=== PATIENT | male | born 1955 ===

== ENCOUNTER 2017-03-19 17:07 | Emergency (ER) | payer MEDICAID, OTHER ==
[2017-03-19 17:16] VITALS: BP 156/99; PULSE 72; RESP 18; TEMP 97.8; O2SAT 98
[2017-03-19] MEDS ORDERED: Tobramycin 0.3% OPH OINT ONE (17:54)
[2017-03-19] MEDS ORDERED: Tobramycin/Dexamethasone OPHT OINT OS ONE (17:55)
--- NOTE | 2017-03-19 18:38 | C.PDOC ---
History Of Present Illness 62 year old male was brought to the ED with complaints of left eye redness for three days. Patient reports he has has similar symptoms in the past. He denies visual changes, foreign body sensation, or trauma. Chief Complaint (Nursing): Eye Problem History Per: Patient History/Exam Limitations: no limitations Onset/Duration Of Symptoms: Days (3 days ) Current Symptoms Are (Timing): Still Present Injury To Eye?: No Associated Symptoms: Other (redness ). denies: Decreased Vision, FB Sensation, Discharge From Eye Recent travel outside of the [place]: No Past Medical History Reviewed: Historical Data, Nursing Documentation, Vital Signs Vital Signs: Last Vital Signs Temp 97.8 F 03/19/17 17:14 Pulse 72 03/19/17 17:14 Resp 18 03/19/17 17:14 BP 156/99 H 03/19/17 17:14 Pulse Ox 98 03/19/17 18:38 - Medical History PMH: Depression (not on meds), HTN Family History: States: Unknown Family Hx - Social History Hx Tobacco Use: Yes Hx Alcohol Use: No Hx Substance Use: Yes (cocaine) - Immunization History Hx Tetanus Toxoid Vaccination: No Hx Influenza Vaccination: No Hx Pneumococcal Vaccination: No Review Of Systems Constitutional: Negative for: Fever Eyes: Positive for: Redness (left eye redness ). Negative for: Vision Change Physical Exam - Physical Exam Appears: Non-toxic, No Acute Distress Skin: Warm, Dry Head: Atraumatic, Normacephalic, No Tenderness, No Swelling, No Abrasion, No Laceration Eye(s): right: Normal Inspection, left: PERRL, EOMI, Other (subconjunctival hemorrhage ) Ear(s): Bilateral: Normal Nose: Normal, No Discharge Oral Mucosa: Moist Neurological/Psych: Oriented x3 ED Course And Treatment O2 Sat by Pulse Oximetry: 98 (RA) Progress Note: Patient had TobraDex ointment applied. Disposition - Disposition Referrals: Pedro Preston MD [Staff Provider] - Disposition: HOME/ ROUTINE Disposition Time: 17:45 Condition: GOOD Additional Instructions: Thank you for letting us take care of you today. Your provider was Dr. Garg. You were treated for subconjuntival hemorrhage. The emergency medical care you received today was directed at your acute symptoms. If you were prescribed any medication, please fill it and take as directed. It may take several days for your symptoms to resolve. Return to the Emergency Department if your symptoms worsen, do not improve, or if you have any other problems. Please contact your doctor or call one of the physicians/clinics you have been referred to that are listed on the Patient Visit Information form that is included in your discharge packet. Bring any paperwork you were given at discharge with you along with any medications you are taking to your follow up visit. Our treatment cannot replace ongoing medical care by a primary care provider (PCP) outside of the emergency department. Thank you for allowing the [facility] team to be part of your care today. Follow up with the eye doctor tomorrow in 3-4 days for further evaluation and management. Josh por permitirnos cuidar de alexandra dunbar. Thompson proveedor fue el Dr. Garg. Te trataron por hemorragia subconjuntival. La atencin mdica de emergencia que recibi hoy estaba dirigida a anton sntomas agudos. Si le recetaron algn medicamento, llnelo y tome kory se le indic. Puede llevar varios gonzales resolver anton sntomas. Regrese al Departamento de Emergencias si anton sntomas empeoran, no mejoran o si tiene algn otro problema. Comunquese con thompson mdico o llame a ashley de los mdicos / clnicas a los que fraser sido derivado que figuran en el formulario de informacin de visita del paciente que se incluye en thompson paquete de valarie. Lleve consigo cualquier papeleo que reciba al valarie junto con cualquier medicamento que est tomando en thompson visita de seguimiento. Nuestro tratamiento no puede reemplazar la atencin m dica continua de un proveedor de atencin primaria (PCP) fuera del departamento de emergencias. Josh por permitir que el equipo de [facility] sea parte de thompson atencin hoy. Contina con el oftalmlogo maana en 3-4 gonzales para evan evaluacin y manejo adicionales. Prescriptions: Polymyxin/Trimethoprim Sulfate [Polytrim Ophth Soln] 1 drop OS Q6 #1 bottle Instructions: Subconjunctival Hemorrhage (ED) Forms: Gen Discharge Inst Cook Islander Print Language: CZECH - Clinical Impression Clinical Impression: Subconjunctival hemorrhage - Scribe Statement The provider has reviewed the documentation as recorded by the Scribe Jaimie Severino All medical record entries made by the Scribe were at my direction and personally dictated by me. I have reviewed the chart and agree that the record accurately reflects my personal performance of the history, physical exam, medical decision making, and the department course for this patient. I have also personally directed, reviewed, and agree with the discharge instructions and disposition.
== END 2017-03-19 18:00 | disposition home or self-care (01) ==
LOC: C.ER 17:07
DX: H11.32 Conjunctival hemorrhage, left eye (principal); Z87.891 Personal history of nicotine dependence

== ENCOUNTER 2018-01-11 01:15 | Inpatient (IN) | payer MEDICAID, OTHER ==
[2018-01-11] MEDS ORDERED: Sodium Chloride 0.9% 1,000 ML IV ONE (01:50)
[2018-01-11] MEDS ORDERED: Sucralfate 1 gm/10 ml Oral Susp UD PO STA (01:52)
--- NOTE | 2018-01-11 01:52 | C.PDOC ---
History Of Present Illness 62 year old male presents to the ED c/o chest pain after using cocaine today. Patient is also c/o feeling spams. Patient denies SI/HI, hallucinations, SOB, weakness, numbness, headache, dizziness. Chief Complaint (Nursing): Chest Pain History Per: Patient History/Exam Limitations: no limitations Onset/Duration Of Symptoms: Hrs Current Symptoms Are (Timing): Still Present Context: Other Quality: "Pain" Alleviating Factors: None Recent travel outside of the [place]: No Additional History Per: Patient Past Medical History Reviewed: Historical Data, Nursing Documentation, Vital Signs Vital Signs: Last Vital Signs Temp 98 F 01/11/18 01:23 Pulse 68 01/11/18 04:22 Resp 18 01/11/18 04:22 BP 109/71 01/11/18 04:22 Pulse Ox 97 01/11/18 05:10 - Medical History PMH: Depression (not on meds), HTN Surgical History: No Surg Hx Family History: States: Unknown Family Hx - Social History Hx Tobacco Use: Yes Hx Alcohol Use: No Hx Substance Use: Yes (cocaine) - Immunization History Hx Tetanus Toxoid Vaccination: No Hx Influenza Vaccination: No Hx Pneumococcal Vaccination: No Review Of Systems Constitutional: Negative for: Fever, Chills Eyes: Negative for: Vision Change Cardiovascular: Positive for: Chest Pain. Negative for: Palpitations Respiratory: Negative for: Cough, Shortness of Breath Gastrointestinal: Negative for: Nausea, Vomiting Skin: Negative for: Rash Neurological: Negative for: Weakness, Numbness, Headache, Dizziness Physical Exam - Physical Exam Appears: Non-toxic, In Acute Distress Skin: Normal Color, Warm, Dry Head: Atraumatic, Normacephalic Eye(s): bilateral: Normal Inspection Oral Mucosa: Moist Neck: Normal ROM, Supple Chest: Symmetrical Cardiovascular: Rhythm Regular Respiratory: Normal Breath Sounds, No Rales, No Rhonchi, No Wheezing Gastrointestinal/Abdominal: Soft, Tenderness (epigastric), No Guarding, No Rebound Extremity: Normal ROM, No Tenderness, No Swelling Neurological/Psych: Oriented x3, Normal Speech, Normal Cognition Gait: Steady ED Course And Treatment - Laboratory Results Result Diagrams: 01/11/18 01:54 01/11/18 01:54 ECG: Interpreted By Me, Viewed By Me ECG Rhythm: Sinus Rhythm, L BBB ECG Interpretation: No Acute Changes Interpretation Of ECG: NSR with PAC, LBBB with secondary ST-T changes., abnormal tracings Rate From EC O2 Sat by Pulse Oximetry: 97 (ON RA) Pulse Ox Interpretation: Normal - Radiology CXR: Interpreted by Me, Viewed By Me CXR Interpretation: Yes: No Acute Disease, Other (normal chest film). No: Infiltrates - CT Scan/US CT abd/pelvis Other Rad Studies (CT/US): Read By Radiologist, Radiology Report Reviewed CT/US Interpretation: EXAM: CT Abdomen and Pelvis With Intravenous Contrast. CLINICAL HISTORY: 62 years old, male; Pain; Abdominal pain; Additional info: Epigastric pain/ elevated lipase. TECHNIQUE: Axial computed tomography images of the abdomen and pelvis with intravenous contrast. All CT. scans at this facility use at least one of these dose optimization techniques: automated exposure. control; mA and/or kV adjustment per patient size (includes targeted exams where dose is matched to. clinical indication); or iterative reconstruction. Coronal and sagittal reformatted images were created and reviewed. COMPARISON: No relevant prior studies available. FINDINGS: Lung bases: Unremarkable. No mass. No consolidation. ABDOMEN: Liver: The liver is within normal limits for this noncontrast study. Gallbladder and bile ducts: Unremarkable. No calcified stones. No ductal dilation. Pancreas: Unremarkable. No mass. No ductal dilation. Spleen: Unremarkable. No splenomegaly. Adrenals: Unremarkable. No mass. Kidneys and ureters: Unremarkable. No solid mass. No hydronephrosis. Stomach and bowel: There is no wall thickening or pericolonic stranding to suggest colitis. No. obstruction. PELVIS: Appendix: A normal appendix is identified. Bladder: Unremarkable. No mass. Reproductive: The prostate gland demonstrates moderate hypertrophy. ELENA TOLENTINO | Preliminary Radiology Report. CONFIDENTIALITY STATEMENT. This report is intended only for the use of the referring physician , and only in accordance with law, If you received this in error, call . Page 2 of 2. ABDOMEN and PELVIS: Intraperitoneal space: Unremarkable. No free air. No significant fluid collection. Bones/joints: No acute fracture. No dislocation. Soft tissues: Unremarkable. Vasculature: The vasculature demonstrates diffuse mild atherosclerotic calcification. No abdominal. aortic aneurysm. Lymph nodes: Unremarkable. No enlarged lymph nodes. IMPRESSION: No acute findings. Thank you for allowing us to participate in the care of your patient. Dictated and Authenticated by: Sofia Jones MD. 01/11/2018 5: 26 AM Eastern Time ([place] & [place]) Medical Decision Making Medical Decision Making: Plan: * EKG * Labs * CXR * Carafate 1 gm PO * Pepcid 20 mg IVP * IV fluids * Toradol 30 mg IVP Disposition Discussed With Dr.: Don Rhodes Doctor Will See Patient In The: Hospital Counseled Patient/Family Regarding: Diagnosis - Disposition Disposition: HOSPITALIZED Disposition Time: 05:08 Condition: STABLE - POA Present On Arrival: None - Clinical Impression Clinical Impression: Chest pain, Acute pancreatitis - Scribe Statement The provider has reviewed the documentation as recorded by the Scribe Nathan Purcell All medical record entries made by the Scribe were at my direction and personally dictated by me. I have reviewed the chart and agree that the record accurately reflects my personal performance of the history, physical exam, medical decision making, and the department course for this patient. I have also personally directed, reviewed, and agree with the discharge instructions and disposition.
[2018-01-11 02:00] LABS: BASO # 0.1 K/uL (0.0-0.2); BASO % 0.7 % (0.0-2.0); EOS # 0.2 K/uL (0.0-0.7); EOS % 2.3 % (0.0-4.0); HEMOGLOBIN 15.8 g/dL (12.0-18.0); LYMPH % 12.3 % (20.0-40.0); MEAN CELL VOLUME 88.8 fL (80.0-94.0); MEAN CORPUSCULAR HEMOGLOBIN 30.8 pg (27.0-31.0); MEAN CORPUSCULAR HGB CONC 34.6 g/dL (33.0-37.0); MEAN PLATELET VOLUME 8.3 fL (7.2-11.7); MONO # 0.8 K/uL (0.0-0.8); MONO % 9.1 % (0.0-10.0); NEUT # 6.4 K/uL (1.8-7.0); NEUT % 75.6 % (50.0-75.0); RBC 5.13 Mil/uL (4.40-5.90); RED CELL DISTRIBUTION WIDTH 13.7 % (11.5-14.5); WHITE BLOOD COUNT 8.5 K/uL (4.8-10.8)
[2018-01-11] MEDS ORDERED: Nitroglycerin 2% Ointment Foilpak UD TOP STA (02:10)
[2018-01-11 02:16] LABS: ALBUMIN 4.9 g/dL (3.5-5.0); ALT/SGPT 40 U/L (21-72); AST/SGOT 39 U/L (17-59); BLOOD UREA NITROGEN 22 mg/dL (9-20); CALCIUM 9.7 mg/dl (8.6-10.4); GFR AFRICAN-AMERICAN > 60; GFR NON-AFRICAN AMERICAN > 60; LIPASE 771 U/L (23-300)
[2018-01-11] MEDS ORDERED: Nitroglycerin 2% Ointment Foilpak UD TOP ONE (02:17)
[2018-01-11] MEDS ORDERED: Sodium Chloride 0.9% 1,000 ML ONE (02:17)
[2018-01-11 02:20] LABS: D DIMER < 200 ng/mlDDU (0-243); INR 1.1; PARTIAL THROMBOPLASTIN TIME 31 SECONDS (21-34); PROTHROMBIN TIME 12.5 SECONDS (9.7-12.2)
[2018-01-11] MEDS ORDERED: Iohexol 240 (50 ml) PO ONE (02:33)
[2018-01-11] MEDS ORDERED: Iohexol 240 (50 ml) ONE (02:40)
[2018-01-11 04:48] LABS: BARBITURATES, UR NEGATIVE (NEGATIVE); BENZODIAZEPINES, UR NEGATIVE (NEGATIVE)
[2018-01-11 05:44] LABS: OPIATES, UR NEGATIVE (NEGATIVE); PHENCYCLIDINE, UR NEGATIVE (NEGATIVE)
--- NOTE | 2018-01-11 05:47 | CP.PCM.HP ---
<Shanon Barcenas - Last Filed: 01/11/18 06:14> History of Present Illness - History of Present Illness History of Present Illness: CC: Chest pain Patient is a 62 year old male with PMHx of HTN and cocaine abuse who presents to the ER for chest pain post snorting cocaine. Patient says he snorts about 4 g of cocaine daily. Today after snorting the cocaine he experienced two episodes of chest pressure with palpitations and shortness of breath which lasted 1 min each about 3 minutes apart. Patient rated the pressure 10/10. Currently chest pain has resolved. Patient also admits to generalized abdominal pain which he rates 5/10 and headache which he rates 7/10. Patient is hungry. Patient denies any nausea, vomiting, constipation, or diarrhea. All: NKDA PMHx: HTN (has not taken medication in 4+ years), decreased vision of right eye Psurg: left shoulder surg 2010, right eye cataract removal at 7 years of age Social: smokes 2 cigs/ day, does 4g of cocaine daily, denies alcohol Famhx: denies Present on Admission - Present on Admission Any Indicators Present on Admission: No History of DVT/PE: No History of Uncontrolled Diabetes: No Urinary Catheter: No Decubitus Ulcer Present: No Review of Systems - Constitutional Constitutional: absent: Fever - EENT Eyes: absent: Blurred Vision - Cardiovascular Cardiovascular: Chest Pain, Dyspnea, Palpitations. absent: Leg Edema - Respiratory Respiratory: absent: Cough - Gastrointestinal Gastrointestinal: Abdominal Pain. absent: Constipation, Diarrhea, Nausea, Vomiting - Genitourinary Genitourinary: absent: Change in Urinary Stream - Musculoskeletal Musculoskeletal: absent: Numbness, Tingling - Neurological Neurological: Headaches Past Patient History - Past Medical History & Family History Past Medical History?: Yes - Past Social History Smoking Status: Light Smoker < 10 Cigarettes Daily - CARDIAC Hx Hypertension: Yes - NEUROLOGICAL Hx Dizziness: No Hx Syncope: No - MUSCULOSKELETAL/RHEUMATOLOGICAL Hx Falls: No - PSYCHIATRIC Hx Depression: Yes (not on meds) Hx Substance Use: Yes (cocaine) - SURGICAL HISTORY Hx Surgeries: Yes (left shoulder, right eye) Hx Eye Surgery: Yes (R eye surgery at age 7) - ANESTHESIA Hx Anesthesia: Yes Hx Anesthesia Reactions: No Hx Malignant Hyperthermia: No Meds Allergies/Adverse Reactions: Allergies Allergy/AdvReac Type Severity Reaction Status Date / Time No Known Allergies Allergy Verified 01/11/18 01:25 Physical Exam - Constitutional Appears: Non-toxic, No Acute Distress - Head Exam Head Exam: ATRAUMATIC, NORMAL INSPECTION, NORMOCEPHALIC - Eye Exam Eye Exam: EOMI, Normal appearance - ENT Exam ENT Exam: Mucous Membranes Moist - Respiratory Exam Respiratory Exam: Clear to Auscultation Bilateral, NORMAL BREATHING PATTERN - Cardiovascular Exam Cardiovascular Exam: REGULAR RHYTHM, RRR, +S1, +S2 - GI/Abdominal Exam GI & Abdominal Exam: Normal Bowel Sounds, Soft, Tenderness (mild generalized tenderness) - Extremities Exam Extremities exam: Positive for: normal inspection. Negative for: pedal edema, tenderness - Back Exam Back exam: NORMAL INSPECTION - Neurological Exam Neurological exam: Alert, Oriented x3 - Psychiatric Exam Psychiatric exam: Normal Affect, Normal Mood - Skin Skin Exam: Intact, Normal Color, Warm Results - Vital Signs Recent Vital Signs: Last Vital Signs Temp 98 F 01/11/18 01:23 Pulse 68 01/11/18 04:22 Resp 18 01/11/18 04:22 BP 109/71 01/11/18 04:22 Pulse Ox 97 01/11/18 05:27 - Labs Result Diagrams: 01/11/18 01:54 01/11/18 01:54 Labs: Laboratory Results - last 24 hr 01/11/18 01/11/18 01/11/18 01:54 01:54 01:54 WBC 8.5 RBC 5.13 Hgb 15.8 Hct 45.6 MCV 88.8 MCH 30.8 MCHC 34.6 RDW 13.7 Plt Count 219 MPV 8.3 Neut % (Auto) 75.6 H Lymph % (Auto) 12.3 L [place] % (Auto) 9.1 Eos % (Auto) 2.3 Baso % (Auto) 0.7 Neut # (Auto) 6.4 Lymph # (Auto) 1.0 [place] # (Auto) 0.8 Eos # (Auto) 0.2 Baso # (Auto) 0.1 PT 12.5 H INR 1.1 APTT 31 D-Dimer, Quantitative < 200 Sodium 146 Potassium 4.0 Chloride 102 Carbon Dioxide 26 Anion Gap 22 H BUN 22 H Creatinine 1.1 Est GFR ( Amer) > 60 Est GFR (Non-Af Amer) > 60 Random Glucose 174 H Calcium 9.7 Total Bilirubin 1.1 AST 39 ALT 40 Alkaline Phosphatase 78 Troponin I 0.0490 Total Protein 7.3 Albumin 4.9 Globulin 2.4 Albumin/Globulin Ratio 2.0 Lipase 771 H Urine Methadone Screen Ur Barbiturates Screen Ur Amphetamines Screen U Benzodiazepines Scrn U Cannabinoids Screen Alcohol, Quantitative < 10 01/11/18 04:21 WBC RBC Hgb Hct MCV MCH MCHC RDW Plt Count MPV Neut % (Auto) Lymph % (Auto) [place] % (Auto) Eos % (Auto) Baso % (Auto) Neut # (Auto) Lymph # (Auto) [place] # (Auto) Eos # (Auto) Baso # (Auto) PT INR APTT D-Dimer, Quantitative Sodium Potassium Chloride Carbon Dioxide Anion Gap BUN Creatinine Est GFR ( Amer) Est GFR (Non-Af Amer) Random Glucose Calcium Total Bilirubin AST ALT Alkaline Phosphatase Troponin I Total Protein Albumin Globulin Albumin/Globulin Ratio Lipase Urine Methadone Screen Negative Ur Barbiturates Screen Negative Ur Amphetamines Screen Negative U Benzodiazepines Scrn Negative U Cannabinoids Screen Negative Alcohol, Quantitative Assessment & Plan - Assessment and Plan (Free Text) Assessment: Chest Pain r/o ACS Trop I: .0490 Repeat PAOLA x 2 EKG: LBBB at 96bpm (not seen in prior ekg) f/u ECHO f/u repeat ekgs Meds: Aspirin 162mg po once Famotidine 20mg once Toradol 30mg ivp once Abd Pain Lipase 771 CT abd/ pelvis: no acute findings repeat lipase Headache Tylenol 650mg po prn Prophylaxis Pepcid 20mg ivp daily SCDs <Don Rhodes P - Last Filed: 01/11/18 06:38> Results - Vital Signs Recent Vital Signs: Last Vital Signs Temp 98 F 01/11/18 01:23 Pulse 68 01/11/18 04:22 Resp 18 01/11/18 04:22 BP 109/71 01/11/18 04:22 Pulse Ox 97 01/11/18 05:27 - Labs Result Diagrams: 01/11/18 01:54 01/11/18 01:54 Labs: Laboratory Results - last 24 hr 01/11/18 01/11/18 01/11/18 01:54 01:54 01:54 WBC 8.5 RBC 5.13 Hgb 15.8 Hct 45.6 MCV 88.8 MCH 30.8 MCHC 34.6 RDW 13.7 Plt Count 219 MPV 8.3 Neut % (Auto) 75.6 H Lymph % (Auto) 12.3 L [place] % (Auto) 9.1 Eos % (Auto) 2.3 Baso % (Auto) 0.7 Neut # (Auto) 6.4 Lymph # (Auto) 1.0 [place] # (Auto) 0.8 Eos # (Auto) 0.2 Baso # (Auto) 0.1 PT 12.5 H INR 1.1 APTT 31 D-Dimer, Quantitative < 200 Sodium 146 Potassium 4.0 Chloride 102 Carbon Dioxide 26 Anion Gap 22 H BUN 22 H Creatinine 1.1 Est GFR ( Amer) > 60 Est GFR (Non-Af Amer) > 60 Random Glucose 174 H Calcium 9.7 Total Bilirubin 1.1 AST 39 ALT 40 Alkaline Phosphatase 78 Troponin I 0.0490 Total Protein 7.3 Albumin 4.9 Globulin 2.4 Albumin/Globulin Ratio 2.0 Lipase 771 H Urine Opiates Screen Urine Methadone Screen Ur Barbiturates Screen Ur Phencyclidine Scrn Ur Amphetamines Screen U Benzodiazepines Scrn U Cannabinoids Screen Alcohol, Quantitative < 10 01/11/18 04:21 WBC RBC Hgb Hct MCV MCH MCHC RDW Plt Count MPV Neut % (Auto) Lymph % (Auto) [place] % (Auto) Eos % (Auto) Baso % (Auto) Neut # (Auto) Lymph # (Auto) [place] # (Auto) Eos # (Auto) Baso # (Auto) PT INR APTT D-Dimer, Quantitative Sodium Potassium Chloride Carbon Dioxide Anion Gap BUN Creatinine Est GFR ( Amer) Est GFR (Non-Af Amer) Random Glucose Calcium Total Bilirubin AST ALT Alkaline Phosphatase Troponin I Total Protein Albumin Globulin Albumin/Globulin Ratio Lipase Urine Opiates Screen Negative Urine Methadone Screen Negative Ur Barbiturates Screen Negative Ur Phencyclidine Scrn Negative Ur Amphetamines Screen Negative U Benzodiazepines Scrn Negative U Cannabinoids Screen Negative Alcohol, Quantitative Attending/Attestation - Attestation I have personally seen and examined this patient.: Yes I have fully participated in the care of the patient.: Yes I have reviewed all pertinent clinical information: Yes Notes (Text): Assessment Cocaine abuse with chest pain New LBBB Hypotension, headache most likely from NTG Epigastric pain with slight elevated lipase, normal abd ct, likely form 1st Plan Stat repeat labs, troponin, lipase Remove nitro from the body Counselled about substance abuse, life style modification Echo for LBBB and 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 See orders for detail.
[2018-01-11 07:06] LABS: CK-MB 4.54 ng/mL (0.0-3.38); TROPONIN I 0.044 ng/mL (0.00-0.120)
--- NOTE | 2018-01-11 09:54 | CT ---
Date of service: 01/11/2018 PROCEDURE: CT Abdomen and Pelvis without intravenous contrast HISTORY: epigastric abdominal pain/ elevated lipase COMPARISON: None. TECHNIQUE: Multiple contiguous axial images were performed through the abdomen and pelvis with the use of intravenous contrast. Subsequently, sagittal and coronal reformatted images were Radiation dose: Total exam DLP = 414 mGy-cm. This CT exam was performed using one or more of the following dose reduction techniques: Automated exposure control, adjustment of the mA and/or kV according to patient size, and/or use of iterative reconstruction technique. FINDINGS: LOWER THORAX: Unremarkable. LIVER: Unremarkable. No gross lesion or ductal dilatation. GALLBLADDER AND BILE DUCTS: Unremarkable. PANCREAS: Unremarkable. No gross lesion or ductal dilatation. SPLEEN: Unremarkable. Splenule. ADRENALS: Unremarkable. No mass. KIDNEYS AND URETERS: Unremarkable. No hydronephrosis. No solid mass. VASCULATURE: Unremarkable. No aortic aneurysm. BOWEL: Unremarkable. No obstruction. No gross mural thickening. APPENDIX: Unremarkable. Normal appendix. PERITONEUM: Unremarkable. No free fluid. No free air. LYMPH NODES: Unremarkable. No enlarged lymph nodes. BLADDER: Unremarkable. REPRODUCTIVE: Moderate hypertrophy of the prostate gland. BONES: No acute fracture. OTHER FINDINGS: Atherosclerotic calcification of the aorta. IMPRESSION: Negative acute. Additional findings as above. These findings were preliminarily reported at 5:26 a.m. on 01/11/[address] Sofia Jones from [employer].
--- NOTE | 2018-01-11 11:29 | RAD ---
Date of service: 01/11/2018 HISTORY: chest pain COMPARISON: 06/11/2015. TECHNIQUE: Chest PA and lateral FINDINGS: LUNGS: No active pulmonary disease. Low lung volumes accentuate pulmonary markings. PLEURA: No significant pleural effusion identified. No pneumothorax apparent. CARDIOVASCULAR: No radiographic findings to suggest acute or significant cardiovascular disease. OSSEOUS STRUCTURES: No significant abnormalities. VISUALIZED UPPER ABDOMEN: Normal. OTHER FINDINGS: None. IMPRESSION: No active disease. No significant interval change compared to the prior examination(s). Limitations of the current examination: Poor inspiratory effort.
--- NOTE | 2018-01-11 13:20 | CARD ---
APPROVED REPORT Date of service: 01/11/2018 EKG Measurement Heart [id number] CO 150P39 [id number] <Conclusion> Sinus rhythm with premature atrial complexes Left bundle branch block Abnormal ECG
--- NOTE | 2018-01-11 13:29 | CP.PCM.PN ---
<Livan Herrera - Last Filed: 01/11/18 13:25> Subjective - Date & Time of Evaluation Date of Evaluation: 01/11/18 Time of Evaluation: 13:25 - Subjective Subjective: Pt seen and examined at bedside. Pt complains of a headache and some stomach pains. Pt also complains of watery diarrhea. Pt reports acute symptoms resolved since cocaine intoxication. PT denies cp, sob, fever chills, n/v. Objective - Vital Signs/Intake and Output Vital Signs (last 24 hours): Temp Pulse Resp BP Pulse Ox 98.2 F 58 L 18 112/58 L 95 01/11/18 10:27 01/11/18 12:53 01/11/18 12:53 01/11/18 12:53 01/11/18 12:53 - Medications Medications: Current Medications Acetaminophen (Tylenol 325mg Tab) 650 mg PO Q6 PRN PRN Reason: Pain, moderate (4-7) Last Admin: 01/11/18 06:55 Dose: 650 mg Famotidine (Pepcid) 20 mg IVP DAILY [facility] Last Admin: 01/11/18 10:05 Dose: 20 mg - Labs Labs: 01/11/18 01:54 01/11/18 01:54 PT 12.5 SECONDS (9.7-12.2) H 01/11/18 01:54 INR 1.1 01/11/18 01:54 APTT 31 SECONDS (21-34) 01/11/18 01:54 - Constitutional Appears: Well, Non-toxic, No Acute Distress - Head Exam Head Exam: ATRAUMATIC, NORMAL INSPECTION - Eye Exam Eye Exam: EOMI, Normal appearance. absent: Scleral icterus - ENT Exam ENT Exam: Mucous Membranes Moist - Respiratory Exam Respiratory Exam: Clear to Ausculation Bilateral, NORMAL BREATHING PATTERN. absent: Rhonchi, Wheezes, Respiratory Distress, Stridor - Cardiovascular Exam Cardiovascular Exam: RRR, +S1, +S2. absent: Tachycardia, Murmur - GI/Abdominal Exam GI & Abdominal Exam: Hyperactive Bowel Sounds. absent: Tenderness - Extremities Exam Extremities Exam: Full ROM. absent: Calf Tenderness, Joint Swelling, Tenderness - Back Exam Back Exam: NORMAL INSPECTION - Neurological Exam Neurological Exam: Alert, Awake, CN II-XII Intact, Oriented x3 Neuro motor strength exam: Left Upper Extremity: 5, Right Upper Extremity: 5, Left Lower Extremity: 5, Right Lower Extremity: 5 - Psychiatric Exam Additional comments: grieving. - Skin Skin Exam: Dry, Normal Color, Warm Assessment and Plan - Assessment and Plan (Free Text) Assessment: 62m with a pmh of htn and cocaine abuse admitted for acute cardiac symptoms after using 4g of cocaine. PLAN Chest Pain r/o ACS -Trop I: .0440, was .0490 -CK-MB 4.54 -EKG: LBBB at 96bpm (not seen in prior ekg) -ECHO: pending read -CXR no active disease Diarrhea: -f/u Ova parasite cultures -IVF 100ml/hr NS -Afebrile, BP 112/58, HR 54 Abd Pain -Lipase 543 was 771, downtrending -CT abd/ pelvis: no acute findings -Famotidine 20mg IVP daily -liquid diet Headache -f/u CT head: -Tylenol 650mg po prn -Likely secondary to Nitrates Bereavement: -pastoral care consulted Prophylaxis Pepcid 20mg ivp daily SCDs dispo: likely d/c tmrw pending ct and observation <Michelle Merino V - Last Filed: 01/11/18 22:06> Objective - Vital Signs/Intake and Output Vital Signs (last 24 hours): Temp Pulse Resp BP Pulse Ox 98.2 F 54 L 20 107/65 98 01/11/18 16:00 01/11/18 16:00 01/11/18 16:00 01/11/18 16:00 01/11/18 16:00 - Medications Medications: Current Medications Acetaminophen (Tylenol 325mg Tab) 650 mg PO Q6 PRN PRN Reason: Pain, moderate (4-7) Last Admin: 01/11/18 06:55 Dose: 650 mg Famotidine (Pepcid) 20 mg IVP DAILY [facility] Last Admin: 01/11/18 10:05 Dose: 20 mg - Labs Labs: 01/11/18 01:54 01/11/18 01:54 PT 12.5 SECONDS (9.7-12.2) H 01/11/18 01:54 INR 1.1 01/11/18 01:54 APTT 31 SECONDS (21-34) 01/11/18 01:54 Attending/Attestation - Attestation I have personally seen and examined this patient.: Yes I have fully participated in the care of the patient.: Yes I have reviewed all pertinent clinical information, including history, physical exam and plan: Yes Notes (Text): Patient seen, examined, and case discussed with day-time resident. Patient seen in the ED [place] bed 6 awaiting bed upstairs given code purple status at the hospital. Patient noted he had taken cocaine prior to coming to hospital, noted for chest pain complaints. However, presently he reports he has headache at bedside. Patient had receive nitroglycerin and had headache following administration per endorsement by colleague. Patient has completed CT scan. No acute findings noted. Patient reports he had diarrhea. No recent travel. Patient order stool ova and parasite and culture. Patient reports his father recently last week from either headbleed or ruptured aneurysm which has been hanging over his head; however when I question him specifically about his cocaine use, he does not like me confronting him on it nor the discussion the adverse side effects of cocaine including cardiac arrest and MN. CT head is negative for acute findings. Pending cardiology evaluation; in light of new onset LBBB, chest pain, cocaine use. patient has completed echocardiogram but official report not available during my rounds. 1) Chest Pain New onset LBBB Assessment/Plan * Monitor on telemetry * Cardiology foundation director evaluation * Aspirin 81mg PO daily * Echocardiogram (01/11/18); borderline concentric left ventricular hypertrophy, left ventricle systolic function is low normal, ejection fraction is 50-55%, left ventricular diastolic function is normal. mitral regurgitation is trace. * LBBB noted on EKGs * Troponin negative X3 * Hgba1c: 5.4 2) Diarrhea * f/u Ova parasite cultures * IVF 100ml/hr NS 3) Abdominal Pain Assessment/Plan * Lipase 543 was 771, downtrending * CT abd/ pelvis: no acute findings * Famotidine 20mg IVP daily * liquid diet: note patient reports he is very hungry during our assessment reports he would like hamburger but i did advise him to try liquid first 4) Headache Assessment/Plan * Tylenol 650mg PO Q6H prn * Likely secondary to Nitrates * CT head is negative for acute findings 5) Cocaine Use Assessment/Plan * Avoid beta-blockers * Counselled to stop using cocaine use secondary to adverse side effects such as MN/Cardiac arrest 6) Bereavement Assessment/plan * pastoral care consulted 7) Prophylaxis * Pepcid 20mg ivp daily * SCDs * Lovenox 40mg subdaily * NS 100cc/hr to stop 7am Disposition: pending cardiology evaluation; possible discharge tomorrow.
[2018-01-11 14:00] LABS: CK-MB 4.43 ng/mL (0.0-3.38); TROPONIN I 0.029 ng/mL (0.00-0.120)
--- NOTE | 2018-01-11 14:52 | CT ---
Date of service: 01/11/2018 PROCEDURE: CT HEAD WITHOUT CONTRAST. HISTORY: headache, hx of htn COMPARISON: None available. TECHNIQUE: Axial computed tomography images were obtained through the head/brain without intravenous contrast. Radiation dose: Total exam DLP = 853.0 mGy-cm. This CT exam was performed using one or more of the following dose reduction techniques: Automated exposure control, adjustment of the mA and/or kV according to patient size, and/or use of iterative reconstruction technique. FINDINGS: HEMORRHAGE: No intracranial hemorrhage. BRAIN: No mass effect or edema. Mild atrophy noted. Moderate size foci of hypodensity in the white matter noted may represent chronic microvascular ischemic disease. VENTRICLES: Unremarkable. No hydrocephalus. CALVARIUM: Unremarkable. PARANASAL SINUSES: Unremarkable as visualized. No significant inflammatory changes. MASTOID AIR CELLS: Unremarkable as visualized. No inflammatory changes. OTHER FINDINGS: None. IMPRESSION: No evidence of acute intracranial hemorrhage intracranial collection mass effect or midline shift. Mild atrophy and moderate white matter changes may represent chronic microvascular ischemic disease.
[2018-01-11 15:16] VITALS: RESP 20
--- NOTE | 2018-01-11 20:19 | CARD ---
APPROVED REPORT Date of service: 01/11/2018 EXAM: Two-dimensional and M-mode echocardiogram with Doppler and color Doppler. Other Information Quality : GoodRhythm : INDICATION Chest Pain Palpitations LBBB 2D DIMENSIONS IVSd1.1 (0.7-1.1cm)Aortic Root (2D)3.2 (2.0-3.7cm) LVDd5.1 (3.9-5.9cm)PWd1.1 (0.7-1.1cm) LVDs3.1 (2.5-4.0cm)FS (%) 39.6 % LVEF (%)69.9 (>50%)LVEF (Allen's)60 % M-Mode DIMENSIONS RVDd2.18 (2.1-3.2cm)Left Atrium (MM)2.65 (2.5-4.0cm) IVSd1.17 (0.7-1.1cm)Aortic Root3.16 (2.2-3.7cm) LVDd5.04 (4.0-5.6cm)Aortic Cusp Exc.2.03 (1.5-2.0cm) PWd1.07 (0.7-1.1cm)FS (%) 31 % LVDs3.48 (2.0-3.8cm)LVEF (%)58 (>50%) Mitral Valve MV E Slqpabtw60.7cm/sMV A Xvjqauva60.7cm/sE/A ratio1.9 TDI E/Lateral E'0.0E/Medial E'0.0 Tricuspid Valve TR Peak Uhpdjtkb729yg/sTR Peak Gr.[id number] LEFT VENTRICLE The left ventricle is normal size. There is borderline concentric left ventricular hypertrophy. Left ventricle systolic function is low normal. The Ejection Fraction is 50-55%. There is normal LV segmental wall motion. The left ventricular diastolic function is normal. There is no ventricular septal defect visualized. RIGHT VENTRICLE The right ventricle is normal size. The right ventricular systolic function is normal. ATRIA The left atrium is mildly dilated. The right atrium size is normal. AORTIC VALVE The aortic valve is mildly sclerotic. The aortic valve is tri-cuspid. No aortic regurgitation is present. There is no aortic valvular stenosis. MITRAL VALVE The mitral valve is normal in structure. There is no evidence of mitral valve prolapse. Mitral regurgitation is trace. TRICUSPID VALVE The tricuspid valve is normal in structure. There is trace tricuspid regurgitation. Right ventricular systolic pressure is estimated at less than 30 mmHg. There is no pulmonary hypertension. PULMONIC VALVE The pulmonary valve is normal in structure. There is no pulmonic valvular regurgitation. GREAT VESSELS The aortic root is normal in size. The ascending aorta is normal in size. The IVC is normal in size and collapses >50% with inspiration. PERICARDIAL EFFUSION There is no pericardial effusion. <Conclusion> There is borderline concentric left ventricular hypertrophy. Left ventricle systolic function is low normal. The Ejection Fraction is 50-55%. The left ventricular diastolic function is normal. Mitral regurgitation is trace.
[2018-01-11] MEDS ORDERED: Sodium Chloride 0.9% 1,000 ML IV SCH (22:15)
[2018-01-12 08:22] LABS: HEMOGLOBIN 14.3 g/dL (12.0-18.0); MEAN CELL VOLUME 89.1 fL (80.0-94.0); MEAN CORPUSCULAR HEMOGLOBIN 31.2 pg (27.0-31.0); MEAN CORPUSCULAR HGB CONC 35.1 g/dL (33.0-37.0); MEAN PLATELET VOLUME 8.2 fL (7.2-11.7); RBC 4.58 Mil/uL (4.40-5.90); RED CELL DISTRIBUTION WIDTH 13.8 % (11.5-14.5); WHITE BLOOD COUNT 5.5 K/uL (4.8-10.8)
[2018-01-12 08:48] LABS: ALB/GLOB RATIO 1.5 (1.0-2.1); ALBUMIN 3.5 g/dL (3.5-5.0); ALT/SGPT 35 U/L (21-72); AST/SGOT 24 U/L (17-59); BLOOD UREA NITROGEN 17 mg/dL (9-20); CALCIUM 8.5 mg/dl (8.6-10.4); GFR AFRICAN-AMERICAN > 60; GFR NON-AFRICAN AMERICAN > 60
[2018-01-12] MEDS ORDERED: Enoxaparin 40 mg Syringe SC SCH (10:00)
--- NOTE | 2018-01-12 12:05 | CARD ---
APPROVED REPORT Date of service: 01/11/2018 EKG Measurement Heart [id number] <Conclusion> Normal sinus rhythm Left axis deviation Left bundle branch block Abnormal ECG
--- NOTE | 2018-01-12 12:10 | CARD ---
APPROVED REPORT Date of service: 01/11/2018 EKG Measurement Heart [id number] <Conclusion> Sinus bradycardia Left axis deviation Left bundle branch block Abnormal ECG
[2018-01-12 12:38] LABS: URINE BILIRUBIN NEGATIVE (NEGATIVE); URINE BLOOD 1+ (NEGATIVE); URINE CLARITY Clear (Clear); URINE COLOR Colorless (YELLOW); URINE GLUCOSE (UA) NORMAL (Normal); URINE LEUKOCYTE ESTERASE NEG Leu/uL (Negative); URINE PROTEIN NEGATIVE (NEGATIVE); URINE UROBILINOGEN NORMAL mg/dL (0.2-1.0)
--- NOTE | 2018-01-12 14:18 | CP.PCM.CON ---
History of Present Illness - History of Present Illness History of Present Illness: Patient was admitted for chest pain and abdominal pain and diarrhea. Patient had smoked cocaine prior to coming to the hospital and developed chest pain. EKG showed left bundle branch block. Cardiac exam PMI were borderline positive Physical examination is normal. Echocardiogram showed normal left ejection fraction with no wall motion abnormality. Plan Counseled patient to discontinue using cocaine. Outpatient stress test. Continue present medication Past Patient History - Past Medical History & Family History Past Medical History?: Yes - Past Social History Smoking Status: Light Smoker < 10 Cigarettes Daily - CARDIAC Hx Hypertension: Yes - NEUROLOGICAL Hx Dizziness: No Hx Syncope: No - MUSCULOSKELETAL/RHEUMATOLOGICAL Hx Falls: No - PSYCHIATRIC Hx Depression: Yes (not on meds) Hx Substance Use: Yes (cocaine) - SURGICAL HISTORY Hx Surgeries: Yes (left shoulder, right eye) Hx Eye Surgery: Yes (R eye surgery at age 7) - ANESTHESIA Hx Anesthesia: Yes Hx Anesthesia Reactions: No Hx Malignant Hyperthermia: No Meds Allergies/Adverse Reactions: Allergies Allergy/AdvReac Type Severity Reaction Status Date / Time No Known Allergies Allergy Verified 01/11/18 01:25 - Medications Medications: Current Medications Acetaminophen (Tylenol 325mg Tab) 650 mg PO Q6 PRN PRN Reason: Pain, moderate (4-7) Last Admin: 01/11/18 06:55 Dose: 650 mg Aspirin (Aspirin Chewable) 81 mg PO DAILY [facility] Last Admin: 01/12/18 09:23 Dose: 81 mg Enoxaparin Sodium (Lovenox) 40 mg SC DAILY [facility] Last Admin: 01/12/18 09:23 Dose: 40 mg Famotidine (Pepcid) 20 mg IVP DAILY [facility] Last Admin: 01/12/18 09:23 Dose: 20 mg Ceftriaxone Sodium 1 gm/ (Sodium Chloride) 100 mls @ 100 mls/hr IVPB Q12H [facility] PRN Reason: Protocol Last Admin: 01/12/18 12:14 Dose: 100 mls/hr Tamsulosin HCl (Flomax) 0.4 mg PO DAILY [facility] Last Admin: 01/12/18 12:14 Dose: 0.4 mg Results - Vital Signs Recent Vital Signs: Last Vital Signs Temp 97.6 F 01/12/18 07:00 Pulse 42 L 01/12/18 08:00 Resp 20 01/12/18 07:00 BP 130/77 01/12/18 07:00 Pulse Ox 97 01/12/18 07:00 - Labs Result Diagrams: 01/12/18 08:15 01/12/18 08:15 Labs: Laboratory Results - last 24 hr 01/12/18 01/12/18 01/12/18 08:15 08:15 12:25 WBC 5.5 RBC 4.58 Hgb 14.3 Hct 40.8 MCV 89.1 MCH 31.2 H MCHC 35.1 RDW 13.8 Plt Count 161 MPV 8.2 Sodium 140 Potassium 3.8 Chloride 107 Carbon Dioxide 25 Anion Gap 12 BUN 17 Creatinine 0.9 Est GFR ( Amer) > 60 Est GFR (Non-Af Amer) > 60 Random Glucose 103 Calcium 8.5 L Phosphorus 3.5 Magnesium 1.9 Total Bilirubin 0.3 AST 24 ALT 35 Alkaline Phosphatase 89 Total Protein 5.7 L Albumin 3.5 D Globulin 2.3 Albumin/Globulin Ratio 1.5 Urine Color Colorless Urine Clarity Clear Urine pH 6.0 Ur Specific [place] 1.003 Urine Protein Negative Urine Glucose (UA) Normal Urine Ketones Negative Urine Blood 1+ H Urine Nitrate Negative Urine Bilirubin Negative Urine Urobilinogen Normal Ur Leukocyte Esterase Neg Urine WBC (Auto) 3 Urine RBC (Auto) 19 H
[2018-01-12 15:58] VITALS: BP 125/64; O2SAT 98
--- NOTE | 2018-01-12 16:02 | CP.PCM.DIS ---
<Livan Herrera - Last Filed: 01/12/18 16:34> Provider - Provider Date of Admission: 01/11/18 05:13 Attending physician: Michelle Merino DO Time Spent in preparation of Discharge (in minutes): 45 Diagnosis - Discharge Diagnosis (1) Prostatic hyperplasia Status: Chronic (2) Bradycardia Status: Resolved (3) Diarrhea Status: Resolved (4) Cocaine abuse Status: Chronic (5) Palpitations Status: Chronic (6) Smoking 1/2 pack a day or less Status: Chronic Hospital Course - Lab Results Lab Results: Micro Results 01/11/18 20:19 Stool Ova and Parasite Concentrate Exam - Final 01/11/18 16:13 Stool Ova and Parasite Concentrate Exam - Final Most Recent Lab Values WBC 5.5 K/uL (4.8-10.8) 01/12/18 08:15 RBC 4.58 Mil/uL (4.40-5.90) 01/12/18 08:15 Hgb 14.3 g/dL (12.0-18.0) 01/12/18 08:15 Hct 40.8 % (35.0-51.0) 01/12/18 08:15 MCV 89.1 fL (80.0-94.0) 01/12/18 08:15 MCH 31.2 pg (27.0-31.0) H 01/12/18 08:15 MCHC 35.1 g/dL (33.0-37.0) 01/12/18 08:15 RDW 13.8 % (11.5-14.5) 01/12/18 08:15 Plt Count 161 K/uL (130-400) 01/12/18 08:15 MPV 8.2 fL (7.2-11.7) 01/12/18 08:15 Neut % (Auto) 75.6 % (50.0-75.0) H 01/11/18 01:54 Lymph % (Auto) 12.3 % (20.0-40.0) L 01/11/18 01:54 Rowan % (Auto) 9.1 % (0.0-10.0) 01/11/18 01:54 Eos % (Auto) 2.3 % (0.0-4.0) 01/11/18 01:54 Baso % (Auto) 0.7 % (0.0-2.0) 01/11/18 01:54 Neut # (Auto) 6.4 K/uL (1.8-7.0) 01/11/18 01:54 Lymph # (Auto) 1.0 K/uL (1.0-4.3) 01/11/18 01:54 Rowan # (Auto) 0.8 K/uL (0.0-0.8) 01/11/18 01:54 Eos # (Auto) 0.2 K/uL (0.0-0.7) 01/11/18 01:54 Baso # (Auto) 0.1 K/uL (0.0-0.2) 01/11/18 01:54 PT 12.5 SECONDS (9.7-12.2) H 01/11/18 01:54 INR 1.1 01/11/18 01:54 APTT 31 SECONDS (21-34) 01/11/18 01:54 D-Dimer, Quantitative < 200 ng/mlDDU (0-243) 01/11/18 01:54 Sodium 140 mmol/L (132-148) 01/12/18 08:15 Potassium 3.8 mmol/L (3.6-5.2) 01/12/18 08:15 Chloride 107 mmol/L (98-107) 01/12/18 08:15 Carbon Dioxide 25 mmol/L (22-30) 01/12/18 08:15 Anion Gap 12 (10-20) 01/12/18 08:15 BUN 17 mg/dL (9-20) 01/12/18 08:15 Creatinine 0.9 mg/dL (0.8-1.5) 01/12/18 08:15 Est GFR ( Amer) > 60 01/12/18 08:15 Est GFR (Non-Af Amer) > 60 01/12/18 08:15 Random Glucose 103 mg/dL (75-110) 01/12/18 08:15 Hemoglobin A1c 5.4 % (4.2-6.5) 01/11/18 13:23 Calcium 8.5 mg/dl (8.6-10.4) L 01/12/18 08:15 Phosphorus 3.5 mg/dL (2.5-4.5) 01/12/18 08:15 Magnesium 1.9 mg/dL (1.6-2.3) 01/12/18 08:15 Total Bilirubin 0.3 mg/dL (0.2-1.3) 01/12/18 08:15 AST 24 U/L (17-59) 01/12/18 08:15 ALT 35 U/L (21-72) 01/12/18 08:15 Alkaline Phosphatase 89 U/L (38-126) 01/12/18 08:15 Total Creatine Kinase 338 U/L (55-170) H 01/11/18 12:14 CK-MB (Mass) 4.43 ng/mL (0.0-3.38) H 01/11/18 12:14 Troponin I 0.0290 ng/mL (0.00-0.120) 01/11/18 12:14 Total Protein 5.7 g/dL (6.3-8.3) L 01/12/18 08:15 Albumin 3.5 g/dL (3.5-5.0) D 01/12/18 08:15 Globulin 2.3 gm/dL (2.2-3.9) 01/12/18 08:15 Albumin/Globulin Ratio 1.5 (1.0-2.1) 01/12/18 08:15 Lipase 543 U/L (23-300) H 01/11/18 06:37 Urine Color Colorless (YELLOW) 01/12/18 12:25 Urine Clarity Clear (Clear) 01/12/18 12:25 Urine pH 6.0 (5.0-8.0) 01/12/18 12:25 Ur Specific Wilson 1.003 (1.003-1.030) 01/12/18 12:25 Urine Protein Negative mg/dL (NEGATIVE) 01/12/18 12:25 Urine Glucose (UA) Normal mg/dL (Normal) 01/12/18 12:25 Urine Ketones Negative mg/dL (NEGATIVE) 01/12/18 12:25 Urine Blood 1+ (NEGATIVE) H 01/12/18 12:25 Urine Nitrate Negative (NEGATIVE) 01/12/18 12:25 Urine Bilirubin Negative (NEGATIVE) 01/12/18 12:25 Urine Urobilinogen Normal mg/dL (0.2-1.0) 01/12/18 12:25 Ur Leukocyte Esterase Neg Sandra/uL (Negative) 01/12/18 12:25 Urine WBC (Auto) 3 /hpf (0-5) 01/12/18 12:25 Urine RBC (Auto) 19 /hpf (0-3) H 01/12/18 12:25 Urine Opiates Screen Negative (NEGATIVE) 01/11/18 04:21 Urine Methadone Screen Negative (NEGATIVE) 01/11/18 04:21 Ur Barbiturates Screen Negative (NEGATIVE) 01/11/18 04:21 Ur Phencyclidine Scrn Negative (NEGATIVE) 01/11/18 04:21 Ur Amphetamines Screen Negative (NEGATIVE) 01/11/18 04:21 U Benzodiazepines Scrn Negative (NEGATIVE) 01/11/18 04:21 U Oth Cocaine Metabols Positive (NEGATIVE) H 01/11/18 04:21 U Cannabinoids Screen Negative (NEGATIVE) 01/11/18 04:21 Alcohol, Quantitative < 10 mg/dl (0-10) 01/11/18 01:54 - Hospital Course Hospital Course: HPI CC: Chest pain Patient is a 62 year old male with PMHx of HTN and cocaine abuse who presents to the ER for chest pain post snorting cocaine. Patient says he snorts about 4 g of cocaine daily. Today after snorting the cocaine he experienced two episodes of chest pressure with palpitations and shortness of breath which lasted 1 min each about 3 minutes apart. Patient rated the pressure 10/10. Currently chest pain has resolved. Patient also admits to generalized abdominal pain which he rates 5/10 and headache which he rates 7/10. Patient is hungry. Patient denies any nausea, vomiting, constipation, or diarrhea. All: NKDA PMHx: HTN (has not taken medication in 4+ years), decreased vision of right eye Psurg: left shoulder surg 2010, right eye cataract removal at 7 years of age Social: smokes 2 cigs/ day, does 4g of cocaine daily, denies alcohol Famhx: denies Hospital Course: Pt was admitted for bradycardia and chest pain afterf ingesting 4gm of cocaine. Pt stable in ED, given ASA 325mg and Nitroglycerin 2% for chest pain. Pt reported resolution of chest pain by morning. Pt complained of diarrhea on 01/11 which was cultered no growth 24hrs. Pt also complained of dysuria. Pt underwent CT abd pelv showing Prostatic Hyperplasia. Pt deemed medically stable for discharge on 01/12 Diagnostics and Imaging: EKG- LBBB sinus bradycardia with premature atrial contractions, x3 troponins: neg x3 CKMB: neg x3 Lipases: 771, 543 Urine: +1 blood, Cocaine + CT abd pelv: Prostatic Hyperplasia CT head: neg Echo: borderline concentric hypertrophy, EF 55% discharge instructions Pt is medically stable for discharge. Pt is to follow up within one week with cardiology for outpt stress test Pt is to follow up at [facility] [phone] to establish care and follow up with prostatic hyperplasia treatment. Pt will be provided with the following prescribed medications upon discharge: -Cipro 500mg BID for 7 days -Flomax 0.4mg daily for 30 days Pt advised to take the following OTC medications: -Immodium PRN -Aspirin 81mg PO daily Pt couseled on smoking cessation and drug abstinence Discharge Exam - Head Exam Head Exam: ATRAUMATIC, NORMAL INSPECTION - Eye Exam Eye Exam: EOMI, Normal appearance. absent: Scleral icterus - ENT Exam ENT Exam: Mucous Membranes Moist - Respiratory Exam Respiratory Exam: Clear to PA & Lateral, NORMAL BREATHING PATTERN, UNREMARKABLE - Cardiovascular Exam Cardiovascular Exam: Bradycardia (43), +S1, +S2 - GI/Abdominal Exam GI & Abdominal Exam: Normal Bowel Sounds, Tenderness (RLQ). absent: Pulsatile Mass, Rebound - Exam Exam: Bladder Distension - Extremities Exam Extremities exam: pedal pulses present - Back Exam Back exam: CVA tenderness (R), NORMAL INSPECTION, paraspinal tenderness ( cervical paraspinal tenderness) - Neurological Exam Neurological exam: Alert, CN II-XII Intact, Oriented x3 - Psychiatric Exam Psychiatric exam: Normal Affect, Normal Mood - Skin Skin Exam: Dry, Intact, Normal Color, Warm Discharge Plan - Discharge Medications Prescriptions: Ciprofloxacin HCl [Cipro] 500 mg PO BID 7 Days tablet Tamsulosin HCl [Flomax] 0.4 mg PO DAILY #30 cap.er.24h - Follow Up Plan Condition: STABLE Disposition: HOME/ ROUTINE Instructions: Ciprofloxacin (Systemic), Smoking: Not Just Harmful to Your Lungs and Heart, Pancreatitis (DC), Chest Pain (DC), Quitting Smoking, Tamsulosin Additional Instructions: Pt is medically stable for discharge. Pt is to follow up within one week with cardiology for outpt stress test Pt is to follow up at [facility] [phone] to establish care and follow up with prostatic hyperplasia treatment. Pt will be provided with the following prescribed medications upon discharge: -Cipro 500mg BID for 7 days -Flomax 0.4mg daily for 30 days Pt advised to take the following OTC medications: -Immodium PRN -Aspirin 81mg PO daily Pt couseled on smoking cessation and drug abstinence Referrals: Shiva Monterroso MD [Staff Provider] - Jerrica Perdomo MD [Staff Provider] - <Michelle Merino V - Last Filed: 01/12/18 20:55> Provider - Provider Date of Admission: 01/11/18 05:13 Attending physician: Michelle Merino, Hospital Course - Lab Results Lab Results: Micro Results 01/11/18 20:19 Stool Ova and Parasite Concentrate Exam - Final 01/11/18 16:13 Stool Ova and Parasite Concentrate Exam - Final Most Recent Lab Values WBC 5.5 K/uL (4.8-10.8) 01/12/18 08:15 RBC 4.58 Mil/uL (4.40-5.90) 01/12/18 08:15 Hgb 14.3 g/dL (12.0-18.0) 01/12/18 08:15 Hct 40.8 % (35.0-51.0) 01/12/18 08:15 MCV 89.1 fL (80.0-94.0) 01/12/18 08:15 MCH 31.2 pg (27.0-31.0) H 01/12/18 08:15 MCHC 35.1 g/dL (33.0-37.0) 01/12/18 08:15 RDW 13.8 % (11.5-14.5) 01/12/18 08:15 Plt Count 161 K/uL (130-400) 01/12/18 08:15 MPV 8.2 fL (7.2-11.7) 01/12/18 08:15 Neut % (Auto) 75.6 % (50.0-75.0) H 01/11/18 01:54 Lymph % (Auto) 12.3 % (20.0-40.0) L 01/11/18 01:54 Rowan % (Auto) 9.1 % (0.0-10.0) 01/11/18 01:54 Eos % (Auto) 2.3 % (0.0-4.0) 01/11/18 01:54 Baso % (Auto) 0.7 % (0.0-2.0) 01/11/18 01:54 Neut # (Auto) 6.4 K/uL (1.8-7.0) 01/11/18 01:54 Lymph # (Auto) 1.0 K/uL (1.0-4.3) 01/11/18 01:54 Rowan # (Auto) 0.8 K/uL (0.0-0.8) 01/11/18 01:54 Eos # (Auto) 0.2 K/uL (0.0-0.7) 01/11/18 01:54 Baso # (Auto) 0.1 K/uL (0.0-0.2) 01/11/18 01:54 PT 12.5 SECONDS (9.7-12.2) H 01/11/18 01:54 INR 1.1 01/11/18 01:54 APTT 31 SECONDS (21-34) 01/11/18 01:54 D-Dimer, Quantitative < 200 ng/mlDDU (0-243) 01/11/18 01:54 Sodium 140 mmol/L (132-148) 01/12/18 08:15 Potassium 3.8 mmol/L (3.6-5.2) 01/12/18 08:15 Chloride 107 mmol/L (98-107) 01/12/18 08:15 Carbon Dioxide 25 mmol/L (22-30) 01/12/18 08:15 Anion Gap 12 (10-20) 01/12/18 08:15 BUN 17 mg/dL (9-20) 01/12/18 08:15 Creatinine 0.9 mg/dL (0.8-1.5) 01/12/18 08:15 Est GFR ( Amer) > 60 01/12/18 08:15 Est GFR (Non-Af Amer) > 60 01/12/18 08:15 Random Glucose 103 mg/dL (75-110) 01/12/18 08:15 Hemoglobin A1c 5.4 % (4.2-6.5) 01/11/18 13:23 Calcium 8.5 mg/dl (8.6-10.4) L 01/12/18 08:15 Phosphorus 3.5 mg/dL (2.5-4.5) 01/12/18 08:15 Magnesium 1.9 mg/dL (1.6-2.3) 01/12/18 08:15 Total Bilirubin 0.3 mg/dL (0.2-1.3) 01/12/18 08:15 AST 24 U/L (17-59) 01/12/18 08:15 ALT 35 U/L (21-72) 01/12/18 08:15 Alkaline Phosphatase 89 U/L (38-126) 01/12/18 08:15 Total Creatine Kinase 338 U/L (55-170) H 01/11/18 12:14 CK-MB (Mass) 4.43 ng/mL (0.0-3.38) H 01/11/18 12:14 Troponin I 0.0290 ng/mL (0.00-0.120) 01/11/18 12:14 Total Protein 5.7 g/dL (6.3-8.3) L 01/12/18 08:15 Albumin 3.5 g/dL (3.5-5.0) D 01/12/18 08:15 Globulin 2.3 gm/dL (2.2-3.9) 01/12/18 08:15 Albumin/Globulin Ratio 1.5 (1.0-2.1) 01/12/18 08:15 Lipase 543 U/L (23-300) H 01/11/18 06:37 Urine Color Colorless (YELLOW) 01/12/18 12:25 Urine Clarity Clear (Clear) 01/12/18 12:25 Urine pH 6.0 (5.0-8.0) 01/12/18 12:25 Ur Specific Wilson 1.003 (1.003-1.030) 01/12/18 12:25 Urine Protein Negative mg/dL (NEGATIVE) 01/12/18 12:25 Urine Glucose (UA) Normal mg/dL (Normal) 01/12/18 12:25 Urine Ketones Negative mg/dL (NEGATIVE) 01/12/18 12:25 Urine Blood 1+ (NEGATIVE) H 01/12/18 12:25 Urine Nitrate Negative (NEGATIVE) 01/12/18 12:25 Urine Bilirubin Negative (NEGATIVE) 01/12/18 12:25 Urine Urobilinogen Normal mg/dL (0.2-1.0) 01/12/18 12:25 Ur Leukocyte Esterase Neg Sandra/uL (Negative) 01/12/18 12:25 Urine WBC (Auto) 3 /hpf (0-5) 01/12/18 12:25 Urine RBC (Auto) 19 /hpf (0-3) H 01/12/18 12:25 Urine Opiates Screen Negative (NEGATIVE) 01/11/18 04:21 Urine Methadone Screen Negative (NEGATIVE) 01/11/18 04:21 Ur Barbiturates Screen Negative (NEGATIVE) 01/11/18 04:21 Ur Phencyclidine Scrn Negative (NEGATIVE) 01/11/18 04:21 Ur Amphetamines Screen Negative (NEGATIVE) 01/11/18 04:21 U Benzodiazepines Scrn Negative (NEGATIVE) 01/11/18 04:21 U Oth Cocaine Metabols Positive (NEGATIVE) H 01/11/18 04:21 U Cannabinoids Screen Negative (NEGATIVE) 01/11/18 04:21 Alcohol, Quantitative < 10 mg/dl (0-10) 01/11/18 01:54 Attending/Attestation - Attestation I have personally seen and examined this patient.: Yes I have fully participated in the care of the patient.: Yes I have reviewed all pertinent clinical information, including history, physical exam and plan: Yes Notes (Text): Patient seen, examined and case discussed with medical scientist. Patient seen this morning. Patient denies shortness of breathe, denies chest pain, denies shortness of breathe, denies cough, reports he has "8 episodes of diarrhea" yesterday but today he reports one episode diarrhea which is formed. Patient reports he is urinary frequency X1 year. UA and urine culture obtained. UA noted for +blood and RBC. Patient given Rocephin 1 gram IV daily today, and given Ciprofloxacin 500mg PO BID for 7 days to cover for urinary tract infection. Patient's stool ova and parasite did not reveal at ova and parasite. Patient was seen and evaluated by cardiology recommended for outpatient stress test. Patient is medically stable for discharge. Patient re-emphasized many times to establish care at the [facility] ([phone]) referral to cardiology for outpatient cardiac stress test and will need referral for urology for further workup for BPH and urinary retention. Medications: 1) Flomax 0.4mg PO daily (30 days/0) 2) Ciprofloxacin 500mg PO BID (14 days/0) OTC: immodium as prn for diarrhea Patient recommended OTC aspirin as cardioprotective agent. Patient will need repeat blood pressure at clinic appointment. Patient has been re-educated many times to STOP his cocaine use given risk for ID/cardiac arrest. Patient has been counselled several times to STOP smoking given risk for adverse effects including smoking. This is a summary of patient's hospitalization. Please see EMR for further details. Discharge Diagnoses: 1) Chest Pain-->Resolved New onset LBBB Assessment/Plan * Monitor on telemetry * Cardiology track production engineer (Dr. Monterroso): on consult-->help appreciated * Cardiac exam PMI were borderline positive * Physical examination is normal. * Echocardiogram showed normal left ejection fraction with no wall motion abnormality. * Plan: Counseled patient to discontinue using cocaine. * Outpatient stress test. * Aspirin 81mg PO daily * Echocardiogram (01/11/18); borderline concentric left ventricular hypertrophy, left ventricle systolic function is low normal, ejection fraction is 50-55%, left ventricular diastolic function is normal. mitral regurgitation is trace. * LBBB noted on EKGs * Troponin negative X3 * Hgba1c: 5.4 2) Gastroenteritis-->Stable Assessment/Plan * Ova and parasite: none observed * Stool culture pending: * Immodium prn for diarrhea * Frequency and character improving on discharge 3) Abdominal Pain--Resolved Assessment/Plan * Lipase 543 was 771, downtrending * CT abd/ pelvis: no acute findings * Patient advanced to regular diet. Patient asking repeatedly for regular food today; reporting he feels better. 4) Headache-->resolved Assessment/Plan * Tylenol 650mg PO Q6H prn * CT head is negative for acute findings 5) Cocaine Use Assessment/Plan * Avoid beta-blockers * Counselled to stop using cocaine use secondary to adverse side effects such as ID/Cardiac arrest-->many many times 6) Bereavement Assessment/plan * pastoral care consulted-->help appreciated 7) Smoking abuse Assessment/plan * counselled against smoking cessation * recommended for OTC nictone patches to curb cravings * advised to refrain from cardiac and lung effects 8) Urinary Retention-->stable Cystitis-->stable Assessment/plan * UA: +1 blood and hematuria; pending urine culture * Given dose of Rocephin 1 gram prophylactic * Discharge on Ciprofloxacin 500mg PO BID * Follow-up in the clinic for PSA and urology referral for BPH and urinary retention for outpatient workup * CT scan no hydronephrosis; enlarged prostate * Discharge on supply of Flomax 0.4mg PO daily
[2018-01-12 18:32] VITALS: PULSE 60; TEMP 98
== END 2018-01-12 20:51 | disposition home or self-care (01) | DRG 308 ==
LOC: C.ER 01:15 → C.9E 05:13 → C.6T 12:32 → C.9E 13:20 → C.6T 13:39
PROVIDERS: ADMIT Internal Medicine; ATTEND Hospitalist
DX: R00.1 Bradycardia, unspecified (principal); K85.90 Acute pancreatitis without necrosis or infection, unspecified; I44.7 Left bundle-branch block, unspecified; F14.120 Cocaine abuse with intoxication, uncomplicated; F17.210 Nicotine dependence, cigarettes, uncomplicated; I10 Essential (primary) hypertension; N40.1 Benign prostatic hyperplasia with lower urinary tract symptoms; Z63.4 Disappearance and death of family member

== ENCOUNTER 2018-08-05 17:24 | Emergency (ER) | payer OTHER, MEDICAID | END 2018-08-05 17:54 | disposition home or self-care (01) | LOC: C.ER 17:24 ==